=== PATIENT | male | born 1995 | race Caucasian/White ===

== ENCOUNTER → 2017-09-05 | Outpatient (CLI) | payer BC ==
--- NOTE | 2017-09-05 20:07 | CONS ---
CONSULTATION DATE OF SERVICE: 09/05/2017 A 22-year-old gentleman has been evaluated in sleep center for excessive daytime sleepiness, snoring, and awakenings from sleep. HISTORY OF PRESENT ILLNESS AND SLEEP-WAKE SCHEDULE: Patient's usual sleep schedule on working days from midnight until 6:30 a.m. and on weekends from midnight until about 9:00 a.m. No problem with falling asleep, although has TV set in bedroom. He wakes up from sleep up to 5 times without nocturia, but has episodes of grinding teeth and dry mouth, sleepwalking are restless legs, sweating, sleep talking, sometimes nocturia. Last episode of sleepwalking was about 2 years ago. The patient may start to see dreams right after falling asleep. During the day he feels sleepy, has problem with memory and depression. [place] Sleepiness Scale is significantly increased to 12. When he is taking naps during the day at lunchtime, he may see very vivid dreams. PAST MEDICAL HISTORY: Positive for right leg DVT. MEDICATIONS: SOCIAL HISTORY: Positive for smoking, quit 10 years ago. Alcohol consumption occasional. FAMILY HISTORY: High blood pressure, snoring by his dad. REVIEW OF SYSTEMS: Multiple awakenings from sleep, sleepiness during the day. PHYSICAL EXAMINATION: GENERAL gentleman without distress. VITAL SIGNS BP 143/70, HR 90, RR 16, height 5 feet 9 and 1/4 inches, weight 255.0, BMI 37.4, temperature 97.9, oxygen saturation at room air 99%. HEENT PERRLA, EOMI, evaluation of oropharynx showed tongue protrudes midline, moderately low position of soft palate. Restriction of nasal breathing on the left side. Neck Supple, no JVD. Thyroid is not palpable. LUNGS Clear to percussion and to auscultation. Good air exchange. No wheezing or rhonchi. HEART S1, S2 regular. No murmurs, gallops, or rubs. ABDOMEN Soft and nontender, slightly obese. Bowel sounds are present. No organomegaly appreciated. EXTREMITIES No clubbing or cyanosis. 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 Cranial nerves 2 to 7 intact. There is no fasciculation or atrophy. noted. No focal deficits observed. IMPRESSION: 1. Snoring, multiple awakenings from sleep, low position of soft palate, restriction of nasal breathing, wide neck 17-1/2 inches in circumference, obstructive sleep apnea-hypopnea syndrome. 2. Excessive daytime sleepiness. [place] Sleepiness Scale significantly increased to 12. Positive history of hypnagogic hallucinations and vivid dreams during naps. Differential diagnosis includes narcolepsy. 3. History of right leg deep venous thrombosis. 4. Possible anxiety a little bit. 5. Recent memory problems. PLAN: 1. Home sleep apnea test for evaluation of patient's breathing during the sleep. 2. I will review results of home sleep apnea test. In case the test will be negative, we should proceed with polysomnogram with the following multiple sleep latency test for objective evaluation of patient's symptoms of excessive sleepiness. 3. CPAP/BiPAP titration if sleep study confirms obstructive sleep apnea-hypopnea syndrome. 4. Preferable position during sleep on the side. 5. No driving if patient feels any sleepiness. 6. I will see patient for follow up visit to explain results of testing and following plan. Thank you very much for allowing me to participate in management of your patient. Sincerely, Oscar Espinal MD, PhD, FAASM Diplomat of [employer] System Configuration Specialist of [facility] [place] MMODL / IJN: [id number] /
== END | disposition home or self-care (01) ==
LOC: SLEEP 14:49
PROVIDERS: ATTEND Internal Medicine
DX: G47.33 Obstructive sleep apnea (adult) (pediatric) (principal); M27.8 Other specified diseases of jaws; R41.3 Other amnesia; Z86.59 Personal history of other mental and behavioral disorders; Z86.718 Personal history of other venous thrombosis and embolism; Z87.891 Personal history of nicotine dependence
CPT/HCPCS: 99211

== ENCOUNTER 2017-09-10 23:07 | Emergency (ER) | payer BC ==
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
[2017-09-11 00:25] LABS: Appearance,Urine Clear (Clear); Bilirubin,Urine Negative (Negative); Blood,Urine Negative (Negative); Color,Urine Yellow; Glucose,Urine (UA) Negative (Negative); Granular Casts,Urine 1 /lpf (0); Hyaline Casts,Urine 3 /lpf (0-2); Ketones,Urine Negative (Negative); Leukocyte Esterase,Urine Negative (Negative); Mucus,Urine Rare /hpf; Nitrite,Urine Negative (Negative); Protein,Urine 1+ (Negative); RBC,Urine <1 /hpf (0-5); Specific Gravity,Urine 1.025 (1.001-1.035); WBC,Urine 1 /hpf (0-5)
[2017-09-11 00:34] LABS: Basophils % (A) 0 %; Eosinophils # (A) 0.1 k/uL (0-0.7); Eosinophils % (A) 1 %; HCT 37.5 % (39.0-53.0); Lymphocytes # (A) 1.9 k/uL (1.0-4.8); Lymphocytes % (A) 24 %; MCHC 34.6 g/dL (31.0-37.0); MCV 89.5 fL (80.0-100.0); Mean Platelet Volume 7.3; Monocytes # (A) 0.4 k/uL (0-1.0); Monocytes % (A) 5 %; Neutrophils # (A) 5.5 k/uL (1.3-7.7); Neutrophils % (A) 68 %; Platelet Count 149 k/uL (150-450); RBC 4.19 m/uL (4.30-5.90); RDW 13.5 % (11.5-15.5); WBC 8.1 k/uL (3.8-10.6)
[2017-09-11 00:39] LABS: ALT 32 U/L (21-72); AST 35 U/L (17-59); Albumin 4.3 g/dL (3.5-5.0); Alkaline Phosphatase 67 U/L (38-126); Anion Gap 9 mmol/L; Blood Urea Nitrogen 23 mg/dL (9-20); Calcium 9.6 mg/dL (8.4-10.2); Carbon Dioxide 25 mmol/L (22-30); Chloride 107 mmol/L (98-107); Glucose 105 mg/dL (74-99); Magnesium 1.9 mg/dL (1.6-2.3); Potassium 4.1 mmol/L (3.5-5.1); Sodium 141 mmol/L (137-145); Total Bilirubin 1.2 mg/dL (0.2-1.3); Total Protein 7.1 g/dL (6.3-8.2)
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
[2017-09-11 01:35] VITALS: BP 140/71; PULSE 78; RESP 18; TEMP 98.9
== END 2017-09-11 01:34 | disposition home or self-care (01) ==
LOC: EC 23:07
DX: R41.82 Altered mental status, unspecified (principal); R55 Syncope and collapse; Z86.718 Personal history of other venous thrombosis and embolism; Z87.891 Personal history of nicotine dependence; Z79.01 Long term (current) use of anticoagulants
CPT/HCPCS: 36415; 70450; 80053; 81001; 83735; 85025; 93005; 99284

== ENCOUNTER 2017-12-06 19:52 | Emergency (ER) | payer OTHER, BC ==
--- NOTE | 2017-12-06 21:44 | CT ---
EXAMINATION TYPE: CT brain james wo con DATE OF EXAM: 12/06/2017 COMPARISON: CT brain 09/11/2017 HISTORY: Syncope. Memory loss. Neck pain. CT DLP: mGycm Automated exposure control for dose reduction was used. TECHNIQUE: CT scan of the head and cervical spine are performed without contrast. FINDINGS: Ventricles and sulci appear normal. There is no mass effect nor midline shift. There is n o evidence of intracranial hemorrhage. The calvarium is intact. There is some mucosal thickening left maxillary sinus. Cervical vertebra have normal spacing and alignment. Posterior elements are intact. Skull base is int act. There is no evidence of a fracture. IMPRESSION: Negative CT scan of the brain. No change. There is some right-sided sphenoid and left maxillary sinus itis. Normal CT scan cervical spine.
[2017-12-06 22:22] VITALS: RESP 18
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
[2017-12-07 00:06] VITALS: BP 157/104; PULSE 91; TEMP 98.6
== END 2017-12-07 00:05 | disposition home or self-care (01) ==
LOC: EC 19:52
DX: Z04.1 Encounter for examination and observation following transport accident (principal); F44.9 Dissociative and conversion disorder, unspecified; Z79.01 Long term (current) use of anticoagulants; Z86.718 Personal history of other venous thrombosis and embolism; Z87.891 Personal history of nicotine dependence; V47.5XXA Car driver injured in collision with fixed or stationary object in traffic accident, initial encounter; W22.11XA Striking against or struck by driver side automobile airbag, initial encounter; Y92.410 Unspecified street and highway as the place of occurrence of the external cause
CPT/HCPCS: 70450; 72125; 99284

== ENCOUNTER 2018-04-28 02:22 | Emergency (ER) | payer BC ==
[2018-04-28] MEDS ORDERED: SULFAMETHOX-TMP 800-160MG 1 EACH TAB PO STA (03:51)
[2018-04-28] MEDS ORDERED: CEPHALEXIN 500 MG CAP PO STA (03:52)
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
--- NOTE | 2018-04-28 06:13 | US ---
EXAM: US Duplex Right Lower Extremity Veins CLINICAL HISTORY: Pain TECHNIQUE: Real-time duplex ultrasound scan of the right lower extremity veins integrating B-mode two-dimensional vascular structure, Doppler spectral analysis, color flow Doppler imaging and compression. COMPARISON: 12/05/2016 FINDINGS: Deep veins: Nonocclusive thrombus is again seen in the right popliteal vein, likely chronic. Superficial veins: Unremarkable. No thrombus in the visualized great saphenous vein. Soft tissues: No acute findings. No popliteal cyst. IMPRESSION: Nonocclusive thrombus is again seen in the right popliteal vein, likely chronic. No evidence of an occlusive DVT. <MYCVCSECTION> [employer] 04/28/18 06:[address] [facility] on 04/28 06:08 (-04:00)
[2018-04-28 06:31] VITALS: BP 129/82; PULSE 114; RESP 20; TEMP 99
== END 2018-04-28 06:32 | disposition home or self-care (01) ==
LOC: EC 02:22
DX: L03.115 Cellulitis of right lower limb (principal); Z86.718 Personal history of other venous thrombosis and embolism; Z87.891 Personal history of nicotine dependence; Z79.01 Long term (current) use of anticoagulants
CPT/HCPCS: 99283

== ENCOUNTER 2020-04-03 23:00 | Emergency (ER) | payer BC ==
[2020-04-03 23:06] VITALS: BP 174/105; PULSE 88; RESP 18; TEMP 98.3
[2020-04-03] MEDS ORDERED: LACOSAMIDE 50 MG TABLET PO STA ×3 (23:22)
--- NOTE | 2020-04-03 23:24 | ED ---
Seizure HPI - General Chief Complaint: Seizure Stated Complaint: Seizure Time Seen by Provider: 04/03/20 23:11 Source: patient, RN notes reviewed, old records reviewed Mode of arrival: ambulatory Limitations: no limitations - History of Present Illness Initial Comments: This is a 25-year-old male resents by his mom for evaluation regarding seizures recurrent seizure epileptic seizure. Patient's seizure use a absent seizure which she did have tonight usually, some sort of noxious stimuli. Patient did smell something that did not make him feel good tonight. Patient then had similar normal seizure type A 70, strain . Mild unresponsiveness but not collapse. Patient denying any drugs or alcohol. Patient had a head injury today and has had a headache on and off. Patient is also been off his been off of his Vimpat econdary to prescription air MD Complaint: seizure, feel seizure coming on Description of Episode: loss of consciousness -: second(s) Witnessed: yes - by bystander Trauma: Yes Seizure History: known seizure disorder Place: home Possible Precipitating Event: none Associated Symptoms: denies other symptoms Treatments Prior to Arrival: none - Related Data Home Medications Medication Instructions Recorded Confirmed Rivaroxaban [Xarelto] 20 mg PO HS 12/05/16 12/06/17 Previous Rx's Medication Instructions Recorded Cephalexin [Keflex] 500 mg PO Q6HR 5 Days #20 cap 04/28/18 Sulfamethox-Tmp 800-160Mg [Bactrim 1 tab PO Q12HR 5 Days #10 tab 04/28/18 DS 800-160 mg] Allergies Allergy/AdvReac Type Severity Reaction Status Date / Time No Known Allergies Allergy Verified 04/03/20 23:06 Review of Systems ROS Statement: Those systems with pertinent positive or pertinent negative responses have been documented in the HPI. ROS Other: All systems not noted in ROS Statement are negative. Past Medical History Past Medical History: Deep Vein Thrombosis (DVT) Additional Past Medical History / Comment(s): DVT 2012, seizure disorder, clotting disorder History of Any Multi-Drug Resistant Organisms: None Reported Past Surgical History: No Surgical Hx Reported Additional Past Surgical History / Comment(s): cyst removed from nipple area, Past Psychological History: No Psychological Hx Reported Smoking Status: Current some day smoker Past Alcohol Use History: Daily Past Drug Use History: None Reported General Exam Limitations: no limitations General appearance: alert, in no apparent distress Head exam: Present: atraumatic, normocephalic, normal inspection Eye exam: Present: normal appearance, PERRL, EOMI. Absent: scleral icterus, conjunctival injection, periorbital swelling ENT exam: Present: normal exam, mucous membranes moist Neck exam: Present: normal inspection. Absent: tenderness, meningismus, lymphadenopathy Respiratory exam: Present: normal lung sounds bilaterally. Absent: respiratory distress, wheezes, rales, rhonchi, stridor Cardiovascular Exam: Present: regular rate, normal rhythm, normal heart sounds. Absent: systolic murmur, diastolic murmur, rubs, gallop, clicks GI/Abdominal exam: Present: soft, normal bowel sounds. Absent: distended, tenderness, guarding, rebound, rigid Extremities exam: Present: normal inspection, full ROM, normal capillary refill. Absent: tenderness, pedal edema, joint swelling, calf tenderness Back exam: Present: normal inspection Neurological exam: Present: alert, oriented X3, CN II-XII intact Psychiatric exam: Present: normal affect, normal mood Skin exam: Present: warm, dry, intact, normal color. Absent: rash Course Vital Signs 04/03/20 23:02 Temperature 98.3 F Pulse Rate 88 Respiratory 18 Rate Blood Pressure 174/105 O2 Sat by Pulse 100 Oximetry - Reevaluation(s) Reevaluation #1: 04/04/20 00:19 Medical record is reviewed Patient has no recurrent seizure here in the ER She given 3 doses of Vimpat follow-up with primary care and further prescription management Medical Decision Making - Medical Decision Making 25 male DF for evaluation patient Dese for evaluation regarding seizure activity. Patient given prescription medication. As patient is on anticoagulation. Patient can be discharged home - Radiology Data Radiology results: report reviewed (CT brain is negative for acute disease), image reviewed Disposition Clinical Impression: Epileptic seizure, generalized Disposition: HOME SELF-CARE Condition: Good Instructions (If sedation given, give patient instructions): Recurrent Seizures in Adults (ED) Is patient prescribed a controlled substance at d/c from ED?: No Referrals: Beck Cano MD [Primary Care Provider] - 1-2 days
--- NOTE | 2020-04-03 23:56 | CT ---
EXAMINATION TYPE: CT brain wo con DATE OF EXAM: 04/03/2020 COMPARISON: 12/06/2017 HISTORY: seizure CT DLP: 1078.4 mGycm Automated exposure control for dose reduction was used. Images obtained of the brain without contrast. Ventricles and sulci appear normal. There is no mass effect nor midline shift. There is no sign of in tracranial hemorrhage. The calvarium is intact. There is no evidence of cerebral edema. Skull base is intact. There is normal aeration of the mastoid sinuses. There is 6 mm rounded fluid density in the left caudate nucleus. 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 This is a change compared to old exam. No acute in tracranial abnormality.
== END 2020-04-04 00:49 | disposition home or self-care (01) ==
LOC: EC 23:00
DX: G40.409 Other generalized epilepsy and epileptic syndromes, not intractable, without status epilepticus (principal); S09.90XA Unspecified injury of head, initial encounter; F17.200 Nicotine dependence, unspecified, uncomplicated; Z79.01 Long term (current) use of anticoagulants; Z86.718 Personal history of other venous thrombosis and embolism; Z86.73 Personal history of transient ischemic attack (TIA), and cerebral infarction without residual deficits; X58.XXXA Exposure to other specified factors, initial encounter
CPT/HCPCS: 70450; 99284

== ENCOUNTER 2022-02-18 05:50 | Emergency (ER) | payer BC ==
[2022-02-18 05:59] VITALS: RESP 18; TEMP 98
--- NOTE | 2022-02-18 06:20 | ED ---
Extremity Problem HPI - General Chief complaint: Extremity Problem,Nontraumatic Stated complaint: Right leg pain Time Seen by Provider: 02/18/22 06:01 Source: family, RN notes reviewed Mode of arrival: wheelchair Limitations: no limitations - History of Present Illness Initial comments: This a 26-year-old male presents emergency Department chief complaint right calf pain. Patient states the pain started tonight. Patient denies any trauma no discoloration fevers chills. Patient states he has a history DVT is currently on Xarelto patient prior clotting disorder. Patient states that he is discussed with vascular about taken off anticoagulants but recommended them to stay on it. Patient has no complaints chest pain shortness of breath paresthesias no back pain. Denies any bowel, bladder incontinence or retention. - Related Data Home Medications Medication Instructions Recorded Confirmed Rivaroxaban [Xarelto] 20 mg PO HS 12/05/16 12/06/17 Previous Rx's Medication Instructions Recorded Cephalexin [Keflex] 500 mg PO Q6HR 5 Days #20 cap 04/28/18 Sulfamethox-Tmp 800-160Mg [Bactrim 1 tab PO Q12HR 5 Days #10 tab 04/28/18 DS 800-160 mg] Allergies Allergy/AdvReac Type Severity Reaction Status Date / Time levetiracetam [From Keppra] Allergy Hallucinati Verified 02/18/22 05:59 ons Review of Systems ROS Statement: Those systems with pertinent positive or pertinent negative responses have been documented in the HPI. ROS Other: All systems not noted in ROS Statement are negative. Past Medical History Past Medical History: Deep Vein Thrombosis (DVT) Additional Past Medical History / Comment(s): DVT 2012, seizure disorder, clotting disorder History of Any Multi-Drug Resistant Organisms: None Reported Past Surgical History: No Surgical Hx Reported Additional Past Surgical History / Comment(s): cyst removed from nipple area, Past Psychological History: No Psychological Hx Reported Smoking Status: Current some day smoker Past Alcohol Use History: Daily Past Drug Use History: None Reported General Exam Limitations: no limitations General appearance: alert, in no apparent distress Head exam: Present: atraumatic, normocephalic, normal inspection Eye exam: Present: normal appearance, PERRL, EOMI. Absent: scleral icterus, conjunctival injection, periorbital swelling Neck exam: Present: normal inspection, full ROM. Absent: tenderness, meningismus, lymphadenopathy Respiratory exam: Present: normal lung sounds bilaterally. Absent: respiratory distress, wheezes, rales, rhonchi, stridor Cardiovascular Exam: Present: regular rate, normal rhythm, normal heart sounds. Absent: systolic murmur, diastolic murmur, rubs, gallop, clicks Extremities exam: Present: full ROM, normal capillary refill, calf tenderness (Mild right), other (Pedal pulses equal bilaterally). Absent: tenderness, pedal edema Skin exam: Present: warm, dry, intact, normal color. Absent: rash Course Vital Signs 02/18/22 02/18/22 05:57 07:44 Temperature 98 F Pulse Rate 96 84 Respiratory 18 18 Rate Blood Pressure 138/85 106/41 O2 Sat by Pulse 98 100 Oximetry Medical Decision Making - Medical Decision Making Was pt. sent in by a medical professional or institution? @ -No Did you speak to anyone other than the patient for history? @ -Family Did you review nursing and triage notes? @ -Reviewed and agree Were old charts reviewed? @ -No Differential Diagnosis? @ -DVT, calf strain, acute fracture, cellulitis, this is not all inclusive EKG interpreted by me (3pts min.)? @ -no X-rays interpreted by me (1pt min.)? @ -No CT interpreted by me (1pt min.)? @ -No U/S interpreted by me (1pt. min.)? @ -Chronic DVT right popliteal What testing was considered but not performed? (CT, X-rays, U/S, labs)? Why? @X-ray was deferred as it was no trauma, What meds were considered but not given? Why? @ -No Did you discuss the management of the patient with other professionals? @ -Attending Did you reconcile home meds? @ -No Was smoking cessation discussed for >3mins.? @ -no Was critical care preformed (if so, how long)? @ -no Were there social determinants of health that impacted care today? How? (Homelessness, low income, unemployed, alcoholism, drug addiction, transportation, low edu. Level, literacy, decrease access to med. care, care home, rehab)? @ -no Was there de-escalation of care discussed even if they declined? (Discuss DNR or withdrawal of care, Hospice)? @ -no What co-morbidities impacted this encounter? (DM, HTN, Smoking, COPD, CAD, Cancer, CVA, Hep., AIDS, mental health diagnosis, sleep apnea, morbid obesity)? @ -no Was patient admitted / discharged? @ -discharged Undiagnosed new problem with uncertain prognosis? @ -no Drug Therapy requiring intensive monitoring for toxicity (Heparin, Nitro, Insulin, Cardizem)? @ -[no Were any procedures done? @ -no Diagnosis/symptom? @ -Chronic DVT right leg Acute, or Chronic, or Acute on Chronic? @ -Chronic Uncomplicated (without systemic symptoms) or Complicated (systemic symptoms)? @ -Uncomplicated Side effects of treatment? @ -no Exacerbation, Progression, or Severe Exacerbation] @ -no Poses a threat to life or bodily function? @ -no 26-year-old male presented for right leg pain. Ultrasound was obtained shows no acute DVT. Patient has chronic DVT will follow-up with PCP return parameters were discussed. Disposition Clinical Impression: Right leg pain, Chronic deep vein thrombosis (DVT) of right lower extremity Disposition: HOME SELF-CARE Condition: Stable Instructions (If sedation given, give patient instructions): Leg Pain (ED) Additional Instructions: Please return to the Emergency Department if symptoms worsen or any other concerns. Is patient prescribed a controlled substance at d/c from ED?: No Referrals: Tone Romero MD [Primary Care Provider] - 1-2 days Time of Disposition: 07:57
[2022-02-18 07:45] VITALS: BP 106/41; PULSE 84
--- NOTE | 2022-02-18 07:54 | US ---
EXAMINATION TYPE: US venous doppler duplex LE RT DATE OF EXAM: 02/18/2022 7:46 AM COMPARISON: 04/28/2018 CLINICAL HISTORY: Right calf pain when walking. History of Right lower extremity DVT. On Xeralto SIDE PERFORMED: Right TECHNIQUE: The lower extremity deep venous system is examined utilizing real time linear array sonog lulu with graded compression, doppler sonography and color-flow sonography. VESSELS IMAGED: Common Femoral Vein Deep Femoral Vein Greater Saphenous Vein * Femoral Vein Popliteal Vein Small Saphenous Vein * Proximal Calf Veins (* superficial vessels) Right Leg: Chronic appearance deep vein thrombosis visualized in the right popliteal vein similar to 2019 exam Grayscale, color doppler, spectral doppler imaging performed of the deep veins of the lower extremiti es. There is normal flow, compressibility, vascular waveforms. IMPRESSION: Chronic appearing deep vein thrombosis at the right popliteal vein similar to 2019.
== END 2022-02-18 08:16 | disposition home or self-care (01) ==
LOC: EC 05:50
DX: I82.501 Chronic embolism and thrombosis of unspecified deep veins of right lower extremity (principal); I82.431 Acute embolism and thrombosis of right popliteal vein; F17.200 Nicotine dependence, unspecified, uncomplicated; Z88.1 Allergy status to other antibiotic agents
CPT/HCPCS: 99283

== ENCOUNTER 2022-05-26 06:28 | Inpatient (IN) | payer BC, OTHER ==
[2022-05-26] MEDS ORDERED: ASPIRIN 81 MG PO STA (06:52)
--- NOTE | 2022-05-26 07:00 | ED ---
Chest Pain HPI <Louis Roy - Last Filed: 05/26/22 09:21> - General Source: patient, RN notes reviewed, old records reviewed Mode of arrival: ambulatory Limitations: no limitations <Ayse De Los Santos - Last Filed: 05/26/22 10:03> - General Chief Complaint: Chest Pain Stated Complaint: Chest Pain SOB Time Seen by Provider: 05/26/22 06:40 - History of Present Illness Initial Comments: 27 year-old male presents to the emergency department for chief complaint of chest pain and shortness of breath. He states it started suddenly around 0400 while moving a heavy load at work. He states he started feeling nauseous, sweaty, and short of breath. He states he vomited multiple times. He reports central chest pain that is sharp and constant. He states it is non- radiating but has bilateral forearm pain. The pain and shortness of breath is worsened with lying flat. He reports being sick last week with a cough. PMH includes DVT for which he takes Xarelto. He states he has been taking it regularly. (Ayse De Los Santos) - Related Data Home Medications Medication Instructions Recorded Confirmed Rivaroxaban [Xarelto] 20 mg PO HS 12/05/16 12/06/17 Previous Rx's Medication Instructions Recorded Cephalexin [Keflex] 500 mg PO Q6HR 5 Days #20 cap 04/28/18 Sulfamethox-Tmp 800-160Mg [Bactrim 1 tab PO Q12HR 5 Days #10 tab 04/28/18 DS 800-160 mg] Allergies Allergy/AdvReac Type Severity Reaction Status Date / Time levetiracetam [From Keppra] Allergy Hallucinati Verified 05/26/22 06:30 ons Review of Systems ROS Other: All systems not noted in ROS Statement are negative. <Louis Roy - Last Filed: 05/26/22 09:21> ROS Other: All systems not noted in ROS Statement are negative. <Ayse De Los Santos - Last Filed: 05/26/22 10:03> ROS Statement: Those systems with pertinent positive or pertinent negative responses have been documented in the HPI. Past Medical History Past Medical History: Deep Vein Thrombosis (DVT) Additional Past Medical History / Comment(s): DVT 2012, seizure disorder, clotting disorder History of Any Multi-Drug Resistant Organisms: None Reported Past Surgical History: No Surgical Hx Reported Additional Past Surgical History / Comment(s): cyst removed from nipple area, Past Psychological History: No Psychological Hx Reported Smoking Status: Former smoker Past Alcohol Use History: Daily, Occasional Past Drug Use History: None Reported <Ayse De Los Santos - Last Filed: 05/26/22 10:03> General Exam Limitations: no limitations General appearance: alert, in no apparent distress, obese Head exam: Present: atraumatic, normocephalic, normal inspection Eye exam: Present: normal appearance, PERRL, EOMI. Absent: scleral icterus, conjunctival injection, periorbital swelling ENT exam: Present: normal exam, mucous membranes moist Neck exam: Present: normal inspection. Absent: tenderness, meningismus, lymphadenopathy Respiratory exam: Present: normal lung sounds bilaterally. Absent: respiratory distress, wheezes, rales, rhonchi, stridor Cardiovascular Exam: Present: normal rhythm, tachycardia GI/Abdominal exam: Present: soft, normal bowel sounds. Absent: distended, tenderness, guarding, rebound, rigid Extremities exam: Present: normal inspection, full ROM, normal capillary refill. Absent: tenderness, pedal edema, joint swelling, calf tenderness Neurological exam: Present: alert, oriented X3, CN II-XII intact Skin exam: Present: warm, dry, intact, normal color. Absent: rash <Ayse De Los Santos - Last Filed: 05/26/22 10:03> Course Vital Signs 05/26/22 05/26/22 05/26/22 06:31 06:57 07:02 Temperature 98 F Pulse Rate 122 H 116 H Respiratory 24 20 20 Rate Blood Pressure 153/88 143/111 O2 Sat by Pulse 98 98 Oximetry 05/26/22 05/26/22 08:26 08:45 Temperature Pulse Rate 109 H 108 H Respiratory 19 19 Rate Blood Pressure 127/65 111/69 O2 Sat by Pulse 98 96 Oximetry Chest Pain MDM <Louis Roy - Last Filed: 05/26/22 09:21> <Ayse De Los Santos - Last Filed: 05/26/22 10:03> - MDM I took over the care of this patient [address] Lowry. I went and evaluated the patient myself. I interpreted the chest x-ray myself and it showed pulmonary edema. I interpreted the CT of the chest myself there was no PE no aortic dissection however there was again pulmonary edema. I spoke with Dr. Bruner on 3 occasions. I spoke with [facility] hospitalist and they accepted the admission. Patient had an elevated troponin and will be going to [facility]. Patient was given aspirin and nitroglycerin sublingual and that did reduce his pain and improve his EKG. Patient was then given Nitropaste and heparin was held because the patient or to ticks Xarelto last night. (Louis Roy) Was pt. sent in by a medical professional or institution (, PA, PUBLIC INTERVIEWER, urgent care, hospital, or care home...) When possible be specific @ -No Did you speak to anyone other than the patient for history (EMS, parent, family, police, friend...)? What history was obtained from this source @ -No Did you review nursing and triage notes (agree or disagree)? Why? @ -I reviewed and agree with nursing and triage notes Were old charts reviewed (outside hosp., previous admission, EMS record, old EKG, old radiological studies, urgent care reports/EKG's, care home records)? Report findings @ -Reviewed prior EKG, reviewed prior notes Differential Diagnosis (chest pain, altered mental status, abdominal pain women, abdominal pain men, vaginal bleeding, weakness, fever, dyspnea, syncope, headache, dizziness, GI bleed, back pain, seizure, CVA, palpatations, mental health, musculoskeletal)? @ -Pulmonary embolism, myocardial infarction, aortic dissection, upper respiratory infection, muscular skeletal injury, this list is not all-inclusive EKG interpreted by me (3pts min.). @ -EKG at 0639 showed sinus tachycardia with rate of 120, AZ 160, QRS 112, QT/QTc 323/[address] depression in lead 1, possible ST elevation in lead 3 EKG at 0719 showed sinus tachycardia with occasional PVCs rate 109, AZ 140, QRS 120, QTQTc [id number] EKG at 0820 showed sinus tachycardia frequent PVCs rate 103, AZ 156, QRS 122, QT /QTc 350/410 X-rays interpreted by me (1pt min.). @ -Chest XR shows possible pulmonary edema versus infiltrate CT interpreted by me (1pt min.). @ -chest CT angiogram shows No evidence of PE, mid and lower lobe ground glass opacity consistent with acute pulmonary process, mild hazy density in the mediastinum without discrete adenopathy U/S interpreted by me (1pt. min.). @ -None done What testing was considered but not performed or refused? (CT, X-rays, U/S, labs)? Why? @ -None What meds were considered but not given or refused? Why? @ -None Did you discuss the management of the patient with other professionals (professionals i.e. , PA, PUBLIC INTERVIEWER, lab, RT, psych nurse, vp digital marketing social media and crm, first assistant, teacher, fisheries enforcement officer, rn field case manager)? 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 @ -No Was critical care preformed (if so, how long)? @ -35 min Were there social determinants of health that impacted care today? How? (Homelessness, low income, unemployed, alcoholism, drug addiction, transporta tion, low edu. Level, literacy, decrease access to med. care, [place] [facility], rehab)? @ -No Was there de-escalation of care discussed even if they declined (Discuss DNR or withdrawal of care, Hospice)? DNR status @ -No What co-morbidities impacted this encounter? (DM, HTN, Smoking, COPD, CAD, Cancer, CVA, ARF, Chemo, Hep., AIDS, mental health diagnosis, sleep apnea, morbid obesity)? @ -None Was patient admitted / discharged? Hospital course, mention meds given and route, prescriptions, significant lab abnormalities, going to OR and other pertinent info. @ -Admitted. 27-year-old male presented with chest pain. Patient was tachycardic on arrival. EKG performed. Given aspirin. Labs obtained including troponin which is markedly elevated. Chest x-ray and CT angiogram obtained. Case discussed with cardiology. [facility] sent to [facility]. Undiagnosed new problem with uncertain prognosis? @ -No Drug Therapy requiring intensive monitoring for toxicity (Heparin, Nitro, Insulin, Cardizem)? @ -No Were any procedures done? @ -No Diagnosis/symptom? @ -NSTEMI Acute, or Chronic, or Acute on Chronic? @ -Acute Uncomplicated (without systemic symptoms) or Complicated (systemic symptoms)? @ -[Complicated Side effects of treatment? @ -No Exacerbation, Progression, or Severe Exacerbation? @ -No Poses a threat to life or bodily function? How? (Chest pain, [place], [place], pneumonia, PE, COPD, DKA, ARF, appy, cholecystitis, CVA, Diverticulitis, Homicidal, Suicidal, threat to staff... and all critical care pts) @ -Yes risk for cardiac arrest (Ayse De Los Santos) Critical Care Time Critical Care Time: Yes Total Critical Care Time: 35 <Ayse De Los Santos - Last Filed: 05/26/22 10:03> Disposition <Louis Roy - Last Filed: 05/26/22 09:21> Is patient prescribed a controlled substance at d/c from ED?: No Time of Disposition: 09:20 <Ayse De Los Santos - Last Filed: 05/26/22 10:03> Clinical Impression: Acute non-ST elevation myocardial infarction (NSTEMI) Disposition: ADMITTED IP TO THIS HOSP Condition: Stable
[2022-05-26 07:07] LABS: Basophils % (A) 0 %; Eosinophils # (A) 0.1 k/uL (0-0.7); Eosinophils % (A) 1 %; HCT 40.3 % (39.0-53.0); HGB 13.8 gm/dL (13.0-17.5); Lymphocytes # (A) 1.3 k/uL (1.0-4.8); Lymphocytes % (A) 9 %; MCH 31.4 pg (25.0-35.0); MCHC 34.3 g/dL (31.0-37.0); MCV 91.8 fL (80.0-100.0); Mean Platelet Volume 8.9; Monocytes # (A) 0.4 k/uL (0-1.0); Monocytes % (A) 3 %; Neutrophils # (A) 11.9 k/uL (1.3-7.7); Neutrophils % (A) 85 %; Platelet Count 137 k/uL (150-450); RBC 4.39 m/uL (4.30-5.90); RDW 13.4 % (11.5-15.5); WBC 13.9 k/uL (3.8-10.6)
[2022-05-26 07:20] LABS: INR 1.1 (<1.2); Partial Thromboplastin Time 52.4 sec (22.0-30.0); Prothrombin Time 11.4 sec (9.0-12.0)
--- NOTE | 2022-05-26 07:27 | XR ---
EXAMINATION TYPE: XR chest 1V portable DATE OF EXAM: 05/26/2022 COMPARISON: NONE HISTORY: Chest pain TECHNIQUE: Single frontal view of the chest is obtained. FINDINGS: Exam is limited by suboptimal technique but grossly the lungs are clear and there is no pleural effus ion or pneumothorax. Heart size is normal and the vasculature is not appear congested. The osseous st ructures are grossly intact. IMPRESSION: Suboptimal technique but grossly unremarkable. No definite acute cardiopulmonary disease .
[2022-05-26] MEDS ORDERED: ONDANSETRON 4 MG/2 ML VIAL IVP STA (07:37)
--- NOTE | 2022-05-26 07:48 | CT ---
EXAMINATION TYPE: CT chest angio for PE DATE OF EXAM: 05/26/2022 COMPARISON: None HISTORY: pe CT DLP: 951.5 mGycm Automated exposure control for dose reduction was used. CONTRAST: CT Chest for pulmonary embolism performed with with IV Contrast, patient injected with 80 mL of Isovu e 370. 3-D postprocessing was performed FINDINGS: The pulmonary artery and branches are opacified and there are no filling defects to suggest pulmonary embolism. There is no mediastinal adenopathy but there is diffuse mediastinal hazy density which is nonspecific mediastinitis. There are diffuse scattered groundglass densities predominantly in the lower lobes consistent with an acute inflammatory process, possibly Covid infection. There is no pleural effusion or pneumothorax. Heart size is normal and the pulmonary vasculature is not congested. Limited scanning through the upper abdomen reveals no gross abnormality. The osseous structures are intact IMPRESSION: 1. No evidence of pulmonary embolism. 2. Marked mid and lower lobe groundglass opacity consistent with an acute pulmonary process, possibl y Covid infection. 3. Mild hazy density in the mediastinum without discrete adenopathy. Raises the question of mediastin itis.
[2022-05-26 07:58] LABS: Albumin 4.5 g/dL (3.5-5.0); Calcium 9.4 mg/dL (8.4-10.2); Magnesium 1.9 mg/dL (1.6-2.3); Potassium 4.4 mmol/L (3.5-5.1); Total Bilirubin 0.7 mg/dL (0.2-1.3); Total Protein 8.5 g/dL (6.3-8.2)
[2022-05-26] MEDS: NITROGLYCERIN SL TABS 0.4 MG TAB SUBLINGUAL PRN ×3 (08:10→08:39)
[2022-05-26 08:49] LABS: Amphetamine Screen,Urine Not Detected (NotDetected); Barbiturate Screen,Urine Not Detected (NotDetected); Benzodiazepines Screen,Urine Not Detected (NotDetected); Cocaine Screen,Urine Not Detected (NotDetected); Methadone Screen, Urine Not Detected (NotDetected); Opiate Screen,Urine Not Detected (NotDetected); Oxycodone Screen, Urine Not Detected (NotDetected); Phencyclidine Screen,Urine Not Detected (NotDetected); Tricyclic Antidepressant,Urine Not Detected (NotDetected); Urn Cannabinoid Scrn Not Detected (NotDetected)
[2022-05-26] MEDS ORDERED: HEPARIN SOD,PORK IN 0.45% NACL 25,000 UNIT in 0.45% NACL 1 250ML.BAG IV SCH (09:00)
[2022-05-26] MEDS ORDERED: NITROGLYCERIN OINT 1 INCH/GM PACKET TOPICAL STA (09:17)
[2022-05-26] MEDS ORDERED: VERAPAMIL 2.5 MG/ML 2 ML AMP ONE ×2 (09:30→10:40)
[2022-05-26] MEDS ORDERED: SODIUM CHLORIDE 0.9% 1,000 ML IV ONE (09:57)
[2022-05-26] MEDS ORDERED: MIDAZOLAM 2 MG/2 ML VIAL IV ONE ×2 (10:10→10:45)
[2022-05-26] MEDS: fentaNYL (PF) 50 MCG/ML 2 ML AMP IV ONE ×2 (10:12→10:37)
[2022-05-26] MEDS ORDERED: fentaNYL (PF) 50 MCG/ML 2 ML AMP ONE (10:13)
[2022-05-26] MEDS: LIDOCAINE 1% INJ 10MG/ML (5 ML VIAL-PF) SQ ONE ×2 (10:13→10:47)
[2022-05-26] MEDS: VERAPAMIL SYRINGE (5 MG/10 ML) INTRAARTER ONE ×3 (10:16→10:50)
[2022-05-26] MEDS ORDERED: CLOPIDOGREL 75 MG TAB ONE (10:55)
[2022-05-26] MEDS ORDERED: CLOPIDOGREL 75 MG TAB PO ONE (10:57)
[2022-05-26] MEDS ORDERED: VERAPAMIL SYRINGE (5 MG/10 ML) INTRAARTER ONE (11:05)
[2022-05-26] MEDS ORDERED: IOPAMIDOL-370 125ML BTL INJ ONE (11:07)
[2022-05-26] MEDS ORDERED: NITROGLYCERIN 1000MCG/10ML SYRINGE INTRACORON ONE (11:34)
[2022-05-26] MEDS ORDERED: IOPAMIDOL-370 100ML BTL INJ ONE (11:37)
--- NOTE | 2022-05-26 12:25 | CC ---
CARDIAC CATHETERIZATION REPORT INDICATIONS: Acute coronary syndrome. PROCEDURE NOTE: After obtaining informed consent, left heart catheterization and coronary angiogram were performed via the right radial artery using standard Mervat catheters. The patient tolerated the procedure well without any obvious immediate complications. Right atrial artery access was obtained by Dr. Man under ultrasound guidance. A 6- Portuguese sheath was placed. Catheters and wires were floated into the ascending aorta under fluoroscopic guidance. We had to use a Glidewire initially. The patient received verapamil per protocol. We did not give any IV heparin as the patient received Xarelto last night. FINDINGS: 1. Hemodynamics: Central aortic pressure is 120/70 mm. 2. Left Ventriculogram: Left ventriculogram is not performed. 3. Angiographic Data: Right coronary artery, right coronary artery appears like a large codominant vessel and is free of significant stenosis. 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 Left main coronary artery is a normal- sized vessel and is free of stenosis. Divides into left anterior descending coronary artery and circumflex coronary artery. LAD and its branches are free of significant stenosis. Circumflex coronary artery gives off a large-caliber OM branch that appears acutely occluded. Very distal AV groove circ also shows mild diffuse disease. CONCLUSION: Acute occlusion of the OM branch. PLAN: Dr. Man, the on-call demurrage man, will attempt angioplasty of the OM branch and will also obtain selective images of the anomalous vessel that was noted during the right injection. MMODL / IJN: [id number] /
--- NOTE | 2022-05-26 12:25 | CA ---
Transthoracic Echo Report Name: Macario Wooten Age: 27 Gender: M : 1995 Exam Date: 05/26/2022 09:31 Exam Location: [facility] Ht (in): 73 Wt (lb): 280 Ordering Physician: Geoff Bruner MD Attending/Referring Phys: [employer] Neymar Palacios RDCS Procedure CPT: Indications: nstemi Cardiac Hx: CP. Obesity Technical Quality: Technically difficult study Contrast 1: Lumason Total Dose (mL): 4 Contrast 2: Total Dose (mL): MEASUREMENTS (Male / Female) Normal Values 2D ECHO LV Diastolic Diameter PLAX 4.9 cm 4.2 - 5.9 / 3.9 - 5.3 cm LV Systolic Diameter PLAX 3.6 cm IVS Diastolic Thickness 1.8 cm 0.6 - 1.0 / 0.6 - 0.9 cm IVS Systolic Thickness 2.3 cm LVPW Diastolic Thickness 1.5 cm 0.6 - 1.0 / 0.6 - 0.9 cm LVPW Systolic Thickness 2.0 cm LV Relative Wall Thickness 0.7 RV Internal Dim ED PLAX 2.7 cm LVOT Diameter 2.6 cm LA Systolic Diameter LX 4.7 cm 3.0 - 4.0 / 2.7 - 3.8 cm LV Diastolic Volume MOD BP 168.1 cm??? 67 - 155 / 56 - 104 cm??? LV Systolic Volume MOD BP 96.3 cm??? 22 - 58 / 19 - 49 cm??? LV Ejection Fraction MOD BP 42.7 % >= 55 % LV Stroke Volume MOD BP 71.7 cm??? LV Diastolic Volume MOD 4C 150.7 cm??? LV Systolic Volume MOD 4C 71.0 cm??? LV Ejection Fraction MOD 4C 52.9 % LV Stroke Volume MOD 4C 79.7 cm??? LV Diastolic Length 4C 8.6 cm LV Systolic Length 4C 7.6 cm LV Diastolic Volume MOD 2C 168.3 cm??? LV Systolic Volume MOD 2C 134.2 cm??? LV Ejection Fraction MOD 2C 20.3 % LV Stroke Volume MOD 2C 34.1 cm??? LV Diastolic Length 2C 7.7 cm LV Systolic Length 2C 7.6 cm Ascending Aorta Diameter 3.0 cm M-MODE Aortic Root Diameter MM 3.0 cm LA Systolic Diameter MM 4.4 cm LA Ao Ratio MM 1.5 AV Cusp Separation MM 1.5 cm DOPPLER MV Deceleration [place] 725.8 cm/s??? MR Peak Velocity 495.7 cm/s MR Peak Gradient 98.3 mmHg MR Flow Rate PISA 268.8 cm???/s Mitral E Point Velocity 98.5 cm/s Mitral A Point Velocity 112.1 cm/s Mitral E to A Ratio 0.9 MV Deceleration Time 135.7 ms MV E' Velocity 8.4 cm/s Mitral E to MV E' Ratio 11.8 TR Peak Velocity 97.3 cm/s TR Peak Gradient 3.8 mmHg PV Peak Velocity 92.2 cm/s PV Peak Gradient 3.4 mmHg FINDINGS Left Ventricle Left ventricular ejection fraction is estimated at 50-55 %. Moderate concentric left ventricular hypertrophy. Grade 1 diastolic dysfunction.. Basal inferior wall appears hypokinetic Hyperdynamic left ventricular systolic function. Right Ventricle Right ventricle not well visualized. Right Atrium Right atrium not well visualized. Left Atrium Mild left atrial dilatation. Mitral Valve . [id number] mitral regurgitation. Aortic Valve Trileaflet aortic valve. Tricuspid Valve Mild tricuspid regurgitation. Pulmonic Valve Pulmonic valve not well visualized. Pericardium Normal pericardium. No pericardial effusion. Aorta Normal size aortic root and proximal ascending aorta. CONCLUSIONS Technically suboptimal study secondary to poor echo windows Contrast agent was used to enhance endocardial definition Normal LV systolic function Hypokinetic basal inferior wall Mild to moderate mitral regurgitation Previewed by: Dr. Davin Bruner MD (Electronically Signed) Final Date: 26 May 2022 12:24
[2022-05-26] MEDS ORDERED: RX INFO: IV CONTRAST WAS GIVEN 1 EACH MISC MISCELLANE PRN (13:00)
[2022-05-26] MEDS ORDERED: ATROPINE SULFATE 0.1 MG/ML 10ML SYRINGE IV PRN (13:00)
[2022-05-26] MEDS ORDERED: MAG HYDROX/AL HYDROX/SIMETH 30 ML CUP PO PRN (13:00)
[2022-05-26] MEDS ORDERED: ZOLPIDEM 5 MG TAB PO PRN (13:00)
[2022-05-26] MEDS ORDERED: NITROGLYCERIN SL TABS 0.4 MG TAB SUBLINGUAL PRN (13:00)
--- NOTE | 2022-05-26 13:15 | P.PRCINT ---
Percutaneous Coronary Int. - Percutaneous Coronary Intervention Percutaneous Coronary Intervention: PROCEDURES PERFORMED: Leftl coronary angiography, IVUS OM2, PCI mid OM2 with a 2.5 x 23mm Xience LYUDMILA INDICATION Non STEMI CONSENT:I have discussed the risks, benefits and alternative therapies for the above-mentioned procedure and for both sedation/analgesia as well as necessary blood product administration, if indicated, as they pertain to this patient. The patient has indicated understanding and acceptance of the risks and procedures discussed. PROCEDURE: After the risks, benefits and alternatives of the above mentioned procedure explained in detail with the patient, informed consent was obtained. Patient was taken to the catheterization lab and prepped and draped in usual fashion. 1% lidocaine was used to anesthetize the right radial artery. A 6- Hungarian sheath had already been placed in the right radial artery. Attempts at advancing a 6Fr catheter up the right radial artery were unsuccessful at the elbow and therefore switched to left radial approach. A 6Fr sheath was placed in the left radial artery using modified Seldinger technique. The decision was made to perform PCI of the OM2. Heparin was given. A 6Fr CLS 3.5 guide was used to engage the left main. A 0.014 whisper wire was advanced into the distal OM2. Predilation was performed with a 2.5 x 12mm balloon however still without antegrade flow. Therefore IVUS was performed which showed minimal plaque of the proximal circumflex and soft plaque and thrombus at the level of the 100% lesion. Next 2.5 x 23mm Xience LYUDMILA was placed in the mid OM2. There was some vasospasm noted just proximal to the stent. Repeat IVUS showed excellent expansion and sizing with no dissection. The wire was pulled and final angiograms were performed. Preintervention there was 100% stenosis and NIKC 0 flow and post intervention there was <10% stenosis and NICK 3 flow. The right and left radial sheath was removed and a TR band was placed with hemostasis achieved. The patient tolerated the procedure well. Patient was transported back to the post catheterization holding area in stable condition. Conscious Sedation: Patient was monitored under the direct supervision of myself for conscious sedation using Versed and fentanyl for a total duration of 60 minutes HEMODYNAMICS: Aortic: 128/91 SELECTIVE CORONARY ARTERIOGRAPHY: LEFT MAIN: The left main is a large caliber vessel which bifurcates into the LAD and circumflex. There is no significant stenosis. LEFT ANTERIOR DESCENDING CORONARY ARTERY: LAD is a moderate to large caliber vessel which appears to give off a diagonal branch and then stops short of the apex. There is no significant stenosis LEFT CIRCUMFLEX CORONARY ARTERY: Left circumflex is a moderate to large caliber vessel which is normal other than a 100% stenosis of the mid OM2 branch. It is codominant. RIGHT CORONARY ARTERY: The right coronary artery was not imaged ANAMOLOUS LAD OFF THE RIGHT CORONARY CUSP: not imaged FINAL IMPRESSION: 1. CAD as described above including 100% OM2 stenosis, s/p PCI mid OM2 with a 2.5 x 23mm Xience LUYDMILA 2. IVUS showing mild plaque at OM2 site with thrombus PLAN: 1. Aggressive risk factor modification per most recent ACC/AHA guidelines. 2. Continue Xarelto and Plavix for 12 months. Ideally aspirin for 30 days as well.
--- NOTE | 2022-05-26 14:05 | P.HPIM ---
History of Present Illness H&P Date: 05/26/22 Chief Complaint: Chest pain 27-year-old gentleman with past medical history significant for DVT, seizure disorder presented to the emergency department with complaints of sudden onset of chest pain or shortness of breath while at work. Patient said he was working at heavy workload at [employer] when he started having diaphoresis and midsternal chest pain. Patient said he has been having these symptoms for at least 5 months on and off worsened by exertion and improved by rest. At the time of presentation in ED patient was noted to have elevated troponin as well as EKG changes and inferiorly CT chest was obtained in the ER which was negative for pulmonary embolism Cardiology was contacted and patient underwent cardiac catheterization and was seen post cardiac cath Review of Systems Constitutional: Denies chills, Denies fever Cardiovascular: Reports chest pain, Reports dyspnea on exertion Respiratory: Denies cough Gastrointestinal: Denies abdominal pain, Denies diarrhea, Denies nausea, Denies vomiting Musculoskeletal: Denies myalgias Neurological: Denies numbness, Denies weakness Past Medical History Past Medical History: Deep Vein Thrombosis (DVT), Seizure Disorder Additional Past Medical History / Comment(s): DVT 2011, seizure disorder, clotting disorder History of Any Multi-Drug Resistant Organisms: None Reported Past Surgical History: No Surgical Hx Reported Additional Past Surgical History / Comment(s): cyst removed from nipple area, Past Psychological History: No Psychological Hx Reported Smoking Status: Former smoker Past Alcohol Use History: Daily, Occasional Additional Past Alcohol Use History / Comment(s): Patients and he has not been drinking alcohol beverages for 2 months now Past Drug Use History: None Reported Medications and Allergies Home Medications Medication Instructions Recorded Confirmed Type Rivaroxaban [Xarelto] 20 mg PO HS 12/05/16 05/26/22 History Lacosamide [Vimpat] 200 mg PO DIRECTED 05/26/22 05/26/22 History lisinopriL [Zestril] 10 mg PO HS 05/26/22 05/26/22 History Allergies Allergy/AdvReac Type Severity Reaction Status Date / Time levetiracetam [From Keppra] Allergy Hallucinati Verified 05/26/22 10:47 ons Physical Exam Vitals: Vital Signs Temp Pulse Pulse Resp BP BP Pulse Ox 05/26/22 12:00 97.8 F 112 H 18 124/72 95 05/26/22 08:45 108 H 19 111/69 96 05/26/22 08:26 109 H 19 127/65 98 05/26/22 07:02 116 H 20 143/111 98 05/26/22 06:57 20 05/26/22 06:31 98 F 122 H 24 153/88 98 Intake and Output 05/25/22 05/26/22 05/26/22 22:59 06:59 14:59 Intake Total 350 Balance 350 Intake: IV 350 Other: Weight 129.274 kg 129.274 kg - Constitutional General appearance: no acute distress, obese - EENT Eyes: EOMI - Respiratory Respiratory: negative: diminished, dullness, rales - Cardiovascular Rhythm: regular Heart sounds: normal: S1, S2 - Neurologic Neurologic: CNII-XII intact, focal deficits - Musculoskeletal Musculoskeletal: gait normal, generalized weakness, strength equal bilaterally, right sided weakness, left sided weakness - Psychiatric Psychiatric: A&O x's 3, appropriate affect, intact judgment & insight Results CBC & Chem 7: 05/26/22 06:56 05/26/22 06:56 Labs: Abnormal Lab Results - Last 24 Hours (Table) 05/26/22 05/26/22 05/26/22 Range/Units 06:56 06:56 06:56 WBC 13.9 H (3.8-10.6) k/uL Plt Count 137 L (150-450) k/uL Neutrophils # 11.9 H (1.3-7.7) k/uL APTT 52.4 H (22.0-30.0) sec BUN 33 H (9-20) mg/dL Creatinine 1.30 H (0.66-1.25) mg/dL Glucose 153 H (74-99) mg/dL ALT 51 H (4-49) U/L Troponin I (0.000-0.034) ng/mL Total Protein 8.5 H (6.3-8.2) g/dL 05/26/22 Range/Units 06:56 WBC (3.8-10.6) k/uL Plt Count (150-450) k/uL Neutrophils # (1.3-7.7) k/uL APTT (22.0-30.0) sec BUN (9-20) mg/dL Creatinine (0.66-1.25) mg/dL Glucose (74-99) mg/dL ALT (4-49) U/L Troponin I 0.276 H* (0.000-0.034) ng/mL Total Protein (6.3-8.2) g/dL Assessment and Plan (1) Acute non-ST elevation myocardial infarction (NSTEMI) Narrative/Plan: Patient noted to have elevated troponin, seen by cardiology status post cardiac catheterization Status post PCI in an obtuse marginal, continue patient on aspirin, Plavix, xarelto IV heparin and discontinue Echocardiogram ordered Continue metoprolol and lisinopril Current Visit: Yes Status: Acute Code(s): I21.4 - NON-ST ELEVATION (NSTEMI) MYOCARDIAL INFARCTION SNOMED Code(s): 432748509 (2) Seizure Narrative/Plan: Patient has been seizure free for 2 years now Continue home medication Current Visit: Yes Status: Acute Code(s): R56.9 - UNSPECIFIED CONVULSIONS SNOMED Code(s): 48509848 (3) History of DVT (deep vein thrombosis) Narrative/Plan: Continue patient on Xarelto Current Visit: Yes Status: Acute Code(s): Z86.718 - PERSONAL HISTORY OF OTHER VENOUS THROMBOSIS AND EMBOLISM SNOMED Code(s): 634502003
[2022-05-26] MEDS ORDERED: ACETAMINOPHEN TAB 325 MG TAB PO PRN (14:08)
[2022-05-26 14:22] VITALS: BMI 37.5
[2022-05-26] MEDS: SODIUM CHLORIDE 0.9% 1,000 ML in EMPTY BAG 1 BAG IV SCH ×2 (15:38→23:21)
[2022-05-26] MEDS: METOPROLOL TARTRATE 25 MG TAB PO SCH ×2 (15:44→20:23)
[2022-05-26] MEDS: RIVAROXABAN 20 MG TAB PO SCH (20:23)
[2022-05-26] MEDS: LACOSAMIDE 150 MG TABLET PO SCH (20:23)
[2022-05-26] MEDS: LACOSAMIDE 50 MG TABLET PO SCH (20:23)
--- NOTE | 2022-05-26 20:56 | CONS ---
CONSULTATION CHIEF COMPLAINT: Chest pain. 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 The patient was at work moving a heavy load, felt sudden onset chest discomfort, shortness of breath, became nauseous, fatigue and had pain in both upper extremities and he came to the ER, where he underwent a CT scan of the chest that was negative for pulmonary embolism. There was evidence of ground-glass opacity and mild haziness of the mediastinum of unclear clinical significance. He had a chest x-ray that showed it was unremarkable, had a normal heart size. I received a phone call from the ER physician around 8 o'clock in the morning, stating that his chest discomfort is concerning for myocardial ischemia and that there are ST-segment depressions in the precordial leads without any ST elevation. I advised him to give the patient sublingual nitroglycerin and put him on nitroglycerin paste and that I will evaluate him and decide on whether I should take him to cardiac catheterization. I spoke to the ER physician a second time around 9:10, he stated that his symptoms have improved somewhat, but have not resolved fully. I came to the ER and evaluated the patient and at the time of my evaluation, his chest discomfort has almost resolved. He had 3 EKGs, the first one was at 6:39 that showed extensive pericardial ST-segment depression and subtle ST elevation in III and aVF. The subsequent EKGs showed that the ST-segment depressions in the precordial leads has improved. There were PVCs and the changes in the lead III and aVF have improved somewhat. The patient's clinical presentation could be due to acute myocardial ischemia, could be due to myopericarditis, however, given the clinical presentation that a sudden onset came on after heavy physical exertion, it was more likely an acute coronary syndrome. Hence, I advised the patient to undergo urgent cardiac catheterization. I explained risks, benefits, and alternatives. The patient is on Xarelto. His last dose was yesterday. We will decide on further course of action based on the angiographic data. His white cell count is slightly elevated at 13.9, and it is of unclear clinical significance. Creatinine and BUN are slightly elevated at 33 and 1.3. Troponin is up at 0.2. Urine drug screen is negative. Coronavirus infection is negative. The patient's clinical presentation does not support the mediastinal, it shows that were raised on the CAT scan. PAST MEDICAL HISTORY: Significant for recurrent DVT and hypertension. Also significant for seizure disorder. MEDICATIONS: Include, 1. Xarelto. 2. Lisinopril. 3. Vimpat. ALLERGIES: Keppra. FAMILY HISTORY: Negative for premature coronary artery disease. SOCIAL HISTORY: Negative for smoking or drug abuse. He drinks alcohol but is trying to cut back on it. REVIEW OF SYSTEMS: HEENT: Unremarkable. CARDIAC: As described above. RESPIRATORY: Negative. GI: Negative. GENITOURINARY: Negative. ALLERGY/IMMUNOLOGY: None. SKIN: Negative. MUSCULOSKELETAL: Negative. ENDOCRINE: Negative. HEMATOLOGICAL: Negative. DERM: Negative. CONSTITUTIONAL: Negative. ONCOLOGICAL: Negative. TRANSPORT NURSE: Negative. Rest of the system review is not relevant. PHYSICAL EXAMINATION: GENERAL: Comfortable at rest. VITAL SIGNS: Stable. NECK: There is no jugular venous distention. Carotid upstroke is normal. There is no bruit. CHEST: Reveals good air entry bilaterally. HEART: Reveals first and second heart sounds. No gallop. No murmur. No rub. ABDOMEN: Soft, nontender. EXTREMITIES: Did not reveal any edema. Peripheral pulses are felt. LABORATORY DATA: As described above. ASSESSMENT: 1. Acute coronary syndrome. 2. History of recurrent deep vein thrombosis. PLAN: The patient will undergo emergent cardiac catheterization to decide on further course of action. Risks, benefits, and alternatives have been discussed with the patient and his mother who is with him. MMODL / IJN: [id number] /
[2022-05-26] MEDS ORDERED: lisinopriL 10 MG TAB PO SCH (21:00)
[2022-05-27] MEDS: SODIUM CHLORIDE 0.9% 1,000 ML in EMPTY BAG 1 BAG IV SCH ×2 (05:34→10:07)
[2022-05-27 08:22] LABS: HCT 35.3 % (39.0-53.0); MCH 31.9 pg (25.0-35.0); MCHC 34.1 g/dL (31.0-37.0); MCV 93.5 fL (80.0-100.0); Mean Platelet Volume 8.5; Platelet Count 151 k/uL (150-450); RBC 3.78 m/uL (4.30-5.90); RDW 13.8 % (11.5-15.5); WBC 16.6 k/uL (3.8-10.6)
[2022-05-27 08:44] LABS: African American GFR (CKD) >90 (>60 ml/min/1.73 sqM); Anion Gap 6 mmol/L; Blood Urea Nitrogen 22 mg/dL (9-20); Calcium 8.9 mg/dL (8.4-10.2); Carbon Dioxide 28 mmol/L (22-30); Chloride 101 mmol/L (98-107); Glucose 157 mg/dL (74-99); Magnesium 1.7 mg/dL (1.6-2.3); Non-African American GFR(CKD) 81 (>60 ml/min/1.73 sqM); Potassium 4.6 mmol/L (3.5-5.1); Sodium 135 mmol/L (137-145)
[2022-05-27] MEDS: LACOSAMIDE 50 MG TABLET PO SCH ×2 (09:01→19:57)
[2022-05-27] MEDS: LACOSAMIDE 150 MG TABLET PO SCH ×2 (09:01→19:57)
[2022-05-27] MEDS: METOPROLOL TARTRATE 25 MG TAB PO SCH ×2 (09:01→19:58)
[2022-05-27] MEDS: ASPIRIN 81 MG PO SCH (09:01)
[2022-05-27] MEDS: CLOPIDOGREL 75 MG TAB PO SCH (09:01)
--- NOTE | 2022-05-27 11:53 | P.PN ---
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 He is admitted to the hospital secondary to non-STEMI. He underwent cardiac catheteri zation yesterday with Dr. Bruner and Dr. Man. Cardiac catheterization revealed coronary artery disease including 100% on 2 stenosis with PCI to the mid OM 2. IVUS showing mild plaque at the OM to site with thrombosis. Patient examined this morning at the bedside. Patient denies chest pain or pressure. He denies shortness of breath. Patient's vital signs are stable. Patient states he did not sleep well overnight as he has obstructive sleep apnea and did not have his CPAP with him. Left and right radial Sites with pulse present. Patient has not been ambulating in the room without difficulty. Echocardiogram completed revealing ejection fraction 50-55%, hypokinetic basal inferior wall, [id number] mitral regurgitation PHYSICAL EXAM: VITAL SIGNS: Reviewed. GENERAL: Well-developed in no acute distress. NECK: Supple. No JVD or thyromegaly LUNGS: Respirations even and unlabored. Lungs essentially clear to auscultation bilaterally. HEART: Regular rate and rhythm. S1 and S2 heard. EXTREMITIES: Normal range of motion. No clubbing or cyanosis. Peripheral pulses intact. No lower extremity edema ASSESSMENT: Non-STEMI, status post PCI of the mid OM2 Obstructive sleep apnea with CPAP use on an outpatient basis History of DVT, on Xarelto outpatient PLAN: Continue current cardiac medications Continue Plavix and Xarelto Add aspirin 81 mg for 30 days Add atorvastatin. Check lipid panel Patients family to bring in patient's CPAP machine for tonight Further recommendations pending patient's course Nurse practitioner note has been reviewed by physician. Signing provider agrees with the documented findings, assessment, and plan of care. Objective - Vital Signs Vital signs: Vital Signs Temp 98.8 F 05/27/22 08:00 Pulse 120 H 05/27/22 08:00 Resp 18 05/27/22 08:00 BP 102/55 05/27/22 08:00 Pulse Ox 94 L 05/27/22 08:29 FiO2 Intake & Output 05/26/22 05/27/22 05/27/22 18:59 06:59 18:59 Intake Total 468 360 Balance 468 360 Weight 129.274 kg Intake: IV 350 Oral 118 360 Other: Voiding Method Toilet Toilet # Voids 2 - Labs CBC & Chem 7: 05/27/22 07:51 05/27/22 07:51 Labs: Abnormal Lab Results - Last 24 Hours (Table) 05/27/22 05/27/22 Range/Units 07:51 07:51 WBC 16.6 H (3.8-10.6) k/uL RBC 3.78 L (4.30-5.90) m/uL Hgb 12.0 L (13.0-17.5) gm/dL Hct 35.3 L (39.0-53.0) % Sodium 135 L (137-145) mmol/L BUN 22 H (9-20) mg/dL Glucose 157 H (74-99) mg/dL
--- NOTE | 2022-05-27 14:02 | P.PN ---
Subjective Progress Note Date: 05/27/22 Principal diagnosis: Assessment and plan * Non-ST elevated NV coronary artery disease status post PCI * History of seizure disorder * History of DVT * Bilateral lower lobe pneumonia * Obstructive sleep apnea * Patient seen by cardiology status post cardiac catheterization mid OM 2, co ntinue aspirin, Plavix, Lipitor * Echocardiogram shows ejection fraction of 50-55%, continue patient on guideline directed medical therapy including lisinopril and metoprolol * In regard to multifocal lower lobe pneumonia continue patient on Rocephin, follow-up on CLL. Pro-calcitonin levels urine Legionella ordered * Already on Xarelto for DVT history Objective - Vital Signs Vital signs: Vital Signs Temp 98.8 F 05/27/22 08:00 Pulse 114 H 05/27/22 12:00 Resp 18 05/27/22 08:00 BP 101/58 05/27/22 12:00 Pulse Ox 91 L 05/27/22 12:00 FiO2 Intake & Output 05/26/22 05/27/22 05/27/22 18:59 06:59 18:59 Intake Total 468 480 Balance 468 480 Weight 129.274 kg Intake: IV 350 Oral 118 480 Other: Voiding Method Toilet Toilet # Voids 2 - Labs CBC & Chem 7: 05/27/22 07:51 05/27/22 07:51 Labs: Abnormal Lab Results - Last 24 Hours (Table) 05/27/22 05/27/22 Range/Units 07:51 07:51 WBC 16.6 H (3.8-10.6) k/uL RBC 3.78 L (4.30-5.90) m/uL Hgb 12.0 L (13.0-17.5) gm/dL Hct 35.3 L (39.0-53.0) % Sodium 135 L (137-145) mmol/L BUN 22 H (9-20) mg/dL Glucose 157 H (74-99) mg/dL Assessment and Plan (1) Acute non-ST elevation myocardial infarction (NSTEMI) Current Visit: Yes Status: Acute Code(s): I21.4 - NON-ST ELEVATION (NSTEMI) MYOCARDIAL INFARCTION SNOMED Code(s): 779949435 (2) Seizure Current Visit: Yes Status: Acute Code(s): R56.9 - UNSPECIFIED CONVULSIONS SNOMED Code(s): 09706492 (3) History of DVT (deep vein thrombosis) Current Visit: Yes Status: Acute Code(s): Z86.718 - PERSONAL HISTORY OF OTHER VENOUS THROMBOSIS AND EMBOLISM SNOMED Code(s): 377021915
[2022-05-27] MEDS: RIVAROXABAN 20 MG TAB PO SCH (19:57)
[2022-05-27] MEDS: lisinopriL 10 MG TAB PO SCH (19:58)
[2022-05-27] MEDS: ATORVASTATIN 40 MG TAB PO SCH (19:58)
[2022-05-27] MEDS ORDERED: lisinopriL 10 MG TAB PO SCH (21:00)
[2022-05-28 06:57] LABS: HCT 36.8 % (39.0-53.0); HGB 12.4 gm/dL (13.0-17.5); MCH 31.4 pg (25.0-35.0); MCHC 33.8 g/dL (31.0-37.0); MCV 93.1 fL (80.0-100.0); Mean Platelet Volume 8.8; Platelet Count 180 k/uL (150-450); RBC 3.95 m/uL (4.30-5.90); RDW 13.9 % (11.5-15.5)
[2022-05-28 07:26] LABS: African American GFR (CKD) >90 (>60 ml/min/1.73 sqM); Anion Gap 9 mmol/L; Blood Urea Nitrogen 26 mg/dL (9-20); Calcium 9.1 mg/dL (8.4-10.2); Carbon Dioxide 26 mmol/L (22-30); Chloride 105 mmol/L (98-107); Glucose 107 mg/dL (74-99); Non-African American GFR(CKD) >90 (>60 ml/min/1.73 sqM); Potassium 4.3 mmol/L (3.5-5.1); Sodium 140 mmol/L (137-145)
--- NOTE | 2022-05-28 07:36 | CONS ---
CONSULTATION Macario is a 27-year-old gentleman with history of recurrent DVT on long-term Xarelto, hypertension on lisinopril, and morbid obesity, who presented to hospital with sudden- onset chest pain. DICTATION ENDS HERE MMODL / IJN: [id number] /
[2022-05-28 08:17] LABS: C Reactive Protein 8.2 mg/dL (<1.0)
[2022-05-28] MEDS: LACOSAMIDE 150 MG TABLET PO SCH ×2 (08:30→20:35)
[2022-05-28] MEDS: METOPROLOL TARTRATE 25 MG TAB PO SCH (08:30)
[2022-05-28] MEDS: CLOPIDOGREL 75 MG TAB PO SCH (08:30)
[2022-05-28] MEDS: LACOSAMIDE 50 MG TABLET PO SCH ×2 (08:30→20:35)
[2022-05-28] MEDS: ASPIRIN 81 MG PO SCH (08:30)
[2022-05-28 08:33] LABS: Chol/HDL Ratio 3.65 Ratio; LDL Cholesterol,Calculated 93.6 mg/dL (0.0-131.0); VLDL Calculation 17.48 mg/dL (5.00-40.00)
[2022-05-28] MEDS ORDERED: METOPROLOL TARTRATE 25 MG TAB PO STA (10:22)
--- NOTE | 2022-05-28 11:40 | P.PN ---
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 He is admitted to the hospital secondary to non-STEMI. He underwent cardiac catheteri zation yesterday with Dr. Bruner and Dr. Man. Cardiac catheterization revealed coronary artery disease including 100% on 2 stenosis with PCI to the mid OM 2. IVUS showing mild plaque at the OM to site with thrombosis. Patient examined this morning at the bedside. Patient denies chest pain or pressure. He denies shortness of breath. Patient's vital signs are stable. Patient states he did not sleep well overnight as he has obstructive sleep apnea and did not have his CPAP with him. Left and right radial Sites with pulse present. Patient has not been ambulating in the room without difficulty. Echocardiogram completed revealing ejection fraction 50-55%, hypokinetic basal inferior wall, [id number] mitral regurgitation. 05/28 patient is seen today in follow-up. He denies having any chest pain or shortness of breath. His heart rate is running slightly elevated, blood press ure is stable. He is currently on all appropriate medications as well as patient is on Xarelto due to a history of DVT from 10 years ago. repeat blood work reveals WBC 12, hemoglobin 12.4. BUN 26 and creatinine 1.09, potassium 4.3. PHYSICAL EXAM: VITAL SIGNS: Reviewed. GENERAL: Well-developed in no acute distress. NECK: Supple. No JVD or thyromegaly LUNGS: Respirations even and unlabored. Lungs essentially clear to auscultation bilaterally. HEART: Regular rate and rhythm. S1 and S2 heard. EXTREMITIES: Normal range of motion. No clubbing or cyanosis. Peripheral puls es intact. No lower extremity edema ASSESSMENT: Non-STEMI, status post PCI of the mid OM2 Obstructive sleep apnea with CPAP use on an outpatient basis History of DVT, on Xarelto outpatient PLAN: Continue current cardiac medications Continue Plavix and Xarelto Add aspirin 81 mg for 7 days and then stop Continue patient's current cardiac medications. Metoprolol increased to 50 mg bid. Patient is cleared for discharge by cardiology and patient will follow up with Dr. Bruner in the office in 1-2 weeks. Nurse practitioner note has been reviewed by physician. Signing provider agrees with the documented findings, assessment, and plan of care. Objective - Vital Signs Vital signs: Vital Signs Temp 98.1 F 05/28/22 08:00 Pulse 105 H 05/28/22 08:00 Resp 18 05/28/22 08:00 BP 103/59 05/28/22 08:00 Pulse Ox 99 05/28/22 08:00 FiO2 Intake & Output 05/27/22 05/28/22 05/28/22 18:59 06:59 18:59 Intake Total 530 118 Balance 530 118 Intake: Intake, IV Titration 50 Amount cefTRIAXone 2 gm In 50 Sodium Chloride 0.9% 50 ml @ 100 mls/hr IVPB Q24HR [facility] Rx#:[id number] Oral 480 118 Other: Voiding Method Toilet Toilet # Voids 2 - Labs CBC & Chem 7: 05/28/22 06:04 05/28/22 06:04 Labs: Abnormal Lab Results - Last 24 Hours (Table) 05/27/22 05/28/22 05/28/22 Range/Units 07:51 06:04 06:04 WBC 12.0 H (3.8-10.6) k/uL RBC 3.95 L (4.30-5.90) m/uL Hgb 12.4 L (13.0-17.5) gm/dL Hct 36.8 L (39.0-53.0) % BUN 26 H (9-20) mg/dL Glucose 107 H (74-99) mg/dL C-Reactive Protein 8.2 H (<1.0) mg/dL Procalcitonin 0.16 H (0.02-0.09) ng/mL
--- NOTE | 2022-05-28 20:33 | PN ---
PROGRESS NOTE DATE OF SERVICE: 05/28/2022 CHIEF COMPLAINT: Acute NSTEMI. HISTORY OF PRESENT ILLNESS: This gentleman is doing well. He is not having any chest pain, arrhythmias, shortness of breath, etc. PHYSICAL EXAMINATION: CHEST: Clear. CARDIAC: Normal. ABDOMEN: Protuberant, soft and nontender. IMPRESSION: Acute NSTEMI. PLAN: Continue to increase activity and probably home tomorrow. MMODL / IJN: [id number] /
[2022-05-28] MEDS: ATORVASTATIN 40 MG TAB PO SCH (20:35)
[2022-05-28] MEDS: METOPROLOL TARTRATE 50 MG TAB PO SCH (20:35)
[2022-05-28] MEDS: lisinopriL 10 MG TAB PO SCH (20:35)
[2022-05-28] MEDS: RIVAROXABAN 20 MG TAB PO SCH (20:35)
[2022-05-28 23:57] VITALS: RESP 16
[2022-05-29] MEDS: METOPROLOL TARTRATE 50 MG TAB PO SCH (08:38)
[2022-05-29] MEDS: ASPIRIN 81 MG PO SCH (08:38)
[2022-05-29] MEDS: CLOPIDOGREL 75 MG TAB PO SCH (08:38)
[2022-05-29] MEDS: LACOSAMIDE 50 MG TABLET PO SCH (08:38)
[2022-05-29] MEDS: LACOSAMIDE 150 MG TABLET PO SCH (08:38)
[2022-05-29 08:46] VITALS: BP 110/58; PULSE 98; TEMP 97.8
--- NOTE | 2022-05-29 14:10 | P.PN ---
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 He is admitted to the hospital secondary to non-STEMI. He underwent cardiac catheteri zation yesterday with Dr. Bruner and Dr. Man. Cardiac catheterization revealed coronary artery disease including 100% on 2 stenosis with PCI to the mid OM 2. IVUS showing mild plaque at the OM to site with thrombosis. Patient examined this morning at the bedside. Patient denies chest pain or pressure. He denies shortness of breath. Patient's vital signs are stable. Patient states he did not sleep well overnight as he has obstructive sleep apnea and did not have his CPAP with him. Left and right radial Sites with pulse present. Patient has not been ambulating in the room without difficulty. Echocardiogram completed revealing ejection fraction 50-55%, hypokinetic basal inferior wall, [id number] mitral regurgitation. 05/28 patient is seen today in follow-up. He denies having any chest pain or shortness of breath. His heart rate is running slightly elevated, blood press ure is stable. He is currently on all appropriate medications as well as patient is on Xarelto due to a history of DVT from 10 years ago. repeat blood work reveals WBC 12, hemoglobin 12.4. BUN 26 and creatinine 1.09, potassium 4.3. 05/29 Patient denies any chest pain or shortness of breath today. Patient is is on the appropriate medications and can be discharged on the same. Noted the patient is to be on aspirin for 7 days and then stop. PHYSICAL EXAM: VITAL SIGNS: Reviewed. GENERAL: Well-developed in no acute distress. NECK: Supple. No JVD or thyromegaly LUNGS: Respirations even and unlabored. Lungs essentially clear to auscultation bilaterally. HEART: Regular rate and rhythm. S1 and S2 heard. EXTREMITIES: Normal range of motion. No clubbing or cyanosis. Peripheral pulses intact. No lower extremity edema ASSESSMENT: Non-STEMI, status post PCI of the mid OM2 Obstructive sleep apnea with CPAP use on an outpatient basis History of DVT, on Xarelto outpatient PLAN: Continue current cardiac medications Continue Plavix and Xarelto Add aspirin 81 mg for 7 days and then stop Continue patient's current cardiac medications. Metoprolol increased to 50 mg bid. Patient is cleared for discharge by cardiology and patient will follow up with Dr. Bruner in the office in 1-2 weeks. Nurse practitioner note has been reviewed by physician. Signing provider agrees with the documented findings, assessment, and plan of care. Objective - Vital Signs Vital signs: Vital Signs Temp 97.8 F 05/29/22 08:00 Pulse 98 05/29/22 08:00 Resp 16 05/29/22 08:00 BP 110/58 05/29/22 08:00 Pulse Ox 100 05/29/22 08:43 FiO2 Intake & Output 05/28/22 05/29/22 05/29/22 18:59 06:59 18:59 Intake Total 898 118 Balance 898 118 Intake: Oral 898 118 Other: Voiding Method Toilet # Voids 1 # Bowel Movements 1 - Labs CBC & Chem 7: 05/28/22 06:04 05/28/22 06:04
--- NOTE | 2022-05-29 22:59 | DS ---
DISCHARGE SUMMARY CHIEF COMPLAINT: Chest pain. HISTORY OF PRESENT ILLNESS AND PHYSICAL EXAMINATION: Details of this man's history and physical can be found in the initial workup. LABORATORY STUDIES: While he was in the hospital, he had laboratory studies, details of which can be found in the laboratory section of his chart. COURSE IN THE HOSPITAL: After admission, he was placed on bedrest, started on intravenous fluids, and taken to the medical laboratory specialist. Single stent was placed. Postoperatively, he did well without any chest pain, arrhythmias, etc. It was felt that he could be discharged on the , and he will follow up in the office in a few days. FINAL DIAGNOSIS: Acute [id number] myocardial infarction. OPERATIONS: Cardiac catheterization and stenting. CONSULTATION: Cardiology. CONDITION: He is improved. MMCLARKE / RHETT: [id number] /
== END 2022-05-29 11:40 | disposition home or self-care (01) | DRG 246 ==
LOC: EC 06:28 → 3SCARD 09:25
PROVIDERS: ADMIT Family Medicine; ATTEND Family Medicine
PROC: 027034Z Dilation of Coronary Artery, One Artery with Drug-eluting Intraluminal Device, Percutaneous Approach (ICD-10-PCS; principal; 2022-05-26 09:30)
PROC: 4A023N7 Measurement of Cardiac Sampling and Pressure, Left Heart, Percutaneous Approach (ICD-10-PCS; 2022-05-26 09:30)
PROC: B2111ZZ Fluoroscopy of Multiple Coronary Arteries using Low Osmolar Contrast (ICD-10-PCS; 2022-05-26 09:30)
DX: I21.4 Non-ST elevation (NSTEMI) myocardial infarction (principal); J18.9 Pneumonia, unspecified organism; J81.1 Chronic pulmonary edema; G40.909 Epilepsy, unspecified, not intractable, without status epilepticus; E66.01 Morbid (severe) obesity due to excess calories; I34.0 Nonrheumatic mitral (valve) insufficiency; I49.3 Ventricular premature depolarization; I25.119 Atherosclerotic heart disease of native coronary artery with unspecified angina pectoris; G47.33 Obstructive sleep apnea (adult) (pediatric); Z20.822 Contact with and (suspected) exposure to COVID-19; Z68.37 Body mass index [BMI] 37.0-37.9, adult; Z87.891 Personal history of nicotine dependence; Z86.718 Personal history of other venous thrombosis and embolism; Z88.8 Allergy status to other drugs, medicaments and biological substances; Z79.899 Other long term (current) drug therapy; Z79.01 Long term (current) use of anticoagulants; Z28.310 Unvaccinated for COVID-19
CPT/HCPCS: 36415; 71045; 71275; 80048; 80053; 80061; 80306; 83735; 83880; 84145; 84484; 85025; 85027; 85610; 85730; 86140; 87449; 87636; 92978; 93005; 93306; 93458; 94760; 96374; 99291